=== PATIENT | male | born 1980 | race Caucasian/White ===

== ENCOUNTER 2016-10-24 03:48 | Emergency (ER) | payer OTHER ==
[~2016-10-24] VITALS: Ht 172.7 cm; Wt 88.5 kg
--- NOTE | 2016-10-24 04:28 | NUR ---
PT IN AND SEEN BY DR PENA, COUGH WITH GREENISH PHLEGM AND SORETHROAT.ACI AND PRESC EXPLAINED TO PT, DISCHARGED AMBULATORY IN STABLE COND.
[2016-10-24 04:34] VITALS: BP 120/80
== END 2016-10-24 04:35 | disposition home or self-care (01) ==
LOC: ER 04:08
DX: J02.9 Acute pharyngitis, unspecified (principal)
CPT/HCPCS: A4663

== ENCOUNTER 2017-03-04 16:39 | Emergency (ER) | payer OTHER ==
[~2017-03-04] VITALS: Ht 172.7 cm; Wt 88.5 kg
--- NOTE | 2017-03-04 17:41 | NUR ---
PT WAS EVALUATED BY DR JOVEL. PT WAS D/C TO HOME. D/C INSTRUCTIONS GIVEN TO THE PT.
[2017-03-04 17:43] VITALS: BP 128/81
== END 2017-03-04 17:44 | disposition home or self-care (01) ==
LOC: ER 16:39
DX: H10.33 Unspecified acute conjunctivitis, bilateral (principal)
CPT/HCPCS: 99283; A4663

== ENCOUNTER 2018-12-18 21:16 | Emergency (ER) | payer OTHER ==
[~2018-12-18] VITALS: Ht 170.2 cm; Wt 89.8 kg
--- NOTE | 2018-12-18 22:46 | NUR ---
Patient discharged to home in stable conditon. Written and verbal after care instructions given. Patient verbalizes understanding of instructions. WALKED OUT OF ER WITH NO DISTRESS NOTED
[2018-12-18 22:47] VITALS: BP 115/77
== END 2018-12-18 22:48 | disposition home or self-care (01) ==
LOC: ER 21:17
DX: L03.012 Cellulitis of left finger (principal)
CPT/HCPCS: A4663